=== PATIENT | male | born 1965 | race Caucasian/White ===

== ENCOUNTER → 2017-08-23 | Outpatient (REF) | payer OTHER ==
[~2017-08-23] MED LIST: CEPH-13 PO
== END ==
LOC: ZZSENDIN 08:16
PROVIDERS: ATTEND Orthopaedic Surgery Hand Surgery
DX: T81.4XXA Infection following a procedure, initial encounter (principal); B95.7 Other staphylococcus as the cause of diseases classified elsewhere
CPT/HCPCS: 87071; 87073; 87077; 87186; 87205

== ENCOUNTER → 2018-02-11 | Outpatient (CLI) | payer OTHER ==
--- NOTE | 2018-02-11 17:15 | RADIOLOGY IMAGING REPORT ---
FACILITY: [facility] - [place] PATIENT NAME: Jim Woodall : 1965 MR: [id number] V: [id number] EXAM DATE: ORDERING PHYSICIAN: [place] AGUDELO TECHNOLOGIST: Location: [facility] [place] Patient: Jim Woodall : 1965 Visit/Account:[id number] Date of Sevice: 02/11/2018 CT left wrist Indication: Left wrist fracture. Fall. Comparison: None available Technique: Axial CT images were obtained through the left wrist. Reformatted coronal and sagittal socrates ges were reviewed. One of the following dose optimization techniques was utilized in the performance of this exam: autom ated exposure control; adjustment of the mA and/or kV according to the patient's size; or use of an i terative reconstruction technique. Specific details can be referenced in the facility's radiology CT exam operational policy. Findings: There is a markedly comminuted intra-articular fracture distal radius which also appears slightly imp acted along the lateral margin of the fracture on the reconstructed coronal images. There is no dislocation. There is also evidence of a nondisplaced fracture along the volar margin of the lunate bone best note d on images 44 and 45 the sagittal series. Mild offset ulnar styloid fracture noted. Prominent soft tissue swelling seen about the wrist and hand. 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 . IMPRESSION: 1. Comminuted intra-articular mildly impacted fracture distal radius as described above in detail. 2. Minimal offset ulnar styloid fracture. 3. Nondisplaced fracture of the volar margin lunate bone noted on the sagittal views. Report Dictated By: Ford Campbell MD at 02/11/2018 5:07 PM Report E-Signed By: Ford Campbell MD at 02/11/2018 5:11 PM [id number]
== END ==
LOC: CT 13:16
PROVIDERS: ATTEND Orthopaedic Surgery Hand Surgery
DX: S52.592A Other fractures of lower end of left radius, initial encounter for closed fracture (principal); S62.012A Displaced fracture of distal pole of navicular [scaphoid] bone of left wrist, initial encounter for closed fracture